=== PATIENT | female | born 1985 ===

== ENCOUNTER 2018-05-26 11:23 | Day surgery (SDC) | payer MEDICAID ==
--- NOTE | 2018-05-26 12:08 | CP.PCM.PN ---
Subjective - Date & Time of Evaluation Date of Evaluation: 05/26/18 Time of Evaluation: 12:03 - Subjective Subjective: Podiatry progress note for Dr. Traylor 32F with pmhx of arthritis seen and evaluated in [facility] for preoperative evaluation of left ankle arthroscopy. Resting comfortably. States that she has had fusions in her left foot in the past. States that the pain in her ankle is always there and hurts most when she is actively moving it. States that she has tried antiinflammatories and bracing and has had only mild success with alleviating the pain and instability. States that she is looking for a hyperion analyst because her father was diabetic and she has swollen joints and arthritis. NPO status confirmed. States she has not had any reactions to anesthesia in the past. Denies N/V/F/C/SOB/CP today and has no other pedal complaints PMHx - arthritis PSHx - hysterectomy, left ankle/foot surgery All - NKDA Objective - Constitutional Appears: Well, Non-toxic, No Acute Distress - Head Exam Head Exam: ATRAUMATIC, NORMOCEPHALIC - Extremities Exam Additional comments: LLE focused Vasc: DP and PT pulses 2/4; temp gradient warm to cool from proximal to distal; edema noted at the ankle joint; cap refill <3 seconds to all digits Derm: skin temp and turgor wnl; scars from previous foot/ankle surgery appreciated; no open lesions or wounds present Ortho: pain on palpation at the ankle joint; pain on active and passive ROM; MMT 5/5 despite minimal guarding Neuro: gross and protective sensation intact - Neurological Exam Neurological Exam: Alert, Awake, Oriented x3 - Psychiatric Exam Psychiatric exam: Normal Affect, Normal Mood Assessment and Plan - Assessment and Plan (Free Text) Assessment: 32F with pmhx of arthritis evaluated preoperatively for left ankle arthroscopy Plan: Pt was seen and examined in [facility] Pt NPO status was confirmed All pre-op testing and clearance in chart Pt has exhausted all conservative treatment at this time and is opting for surgical intervention Pt was explained procedure and post-operative course All pt's questions were answered to satisfaction No guarantees were made Pt understands all risks, benefits and complications of procedure Pt will follow-up with Dr. Traylor within 1 week of surgery
--- NOTE | 2018-05-26 12:09 | CP.SDSHP ---
Same Day Surgery H & P - History Proposed Procedure: Left ankle arthroscopy Pre-Op Diagnosis: Left ankle osteoarthritis - Allergies Allergies: Allergies No Known Allergies Allergy (Verified 05/26/18 11:48) - Physical Exam Neuro: WNL Heart: WNL Lungs: WNL GI: WNL - Impression Pt. Evaluated Today:Candidate for Anesthesia & Procedure: Yes - Date & Time Date: 05/26/18 Time: 12:09 Short Stay Discharge - Short Stay Discharge Admitting Diagnosis/Reason for Visit: ARTHROSCOPY LEFT ANKLE JOINT Disposition: HOME/ ROUTINE Additional Instructions (Diet, Activity): -Patient in good/stable condition for discharge home -Pt to resume medications per medical reconciliation -Resume regular diet -Please keep dressing clean, dry, & intact to surgical site -Use plastic bag over bandage for showering -Wear post op shoe at all times when ambulating -Call clinic if you see signs of infection (redness, swelling, malodor) -Please make an appointment to see Dr. Traylor in office/clinic within 1 week for post-op check Progress Note/Discharge Note with Instructions: - Patient evaluated bedside in recovery s/p left ankle arthroscopy - After surgical procedure patient in NAD - (+) Void, (+) Appetite - Capillary refill time <3s and NVS intact. - Patient denies complaints at this time. - Post operative instructions and plan of care explained to patient at length. - Patient. acknowledges verbal understanding. - Patient stable for DC per podiatric surgery
[2018-05-26 12:21] VITALS: RESP 18
[2018-05-26 12:33] VITALS: BMI 30.7
[2018-05-26] MEDS ORDERED: Lidocaine 1% Inj (20ml) ONE (12:35)
[2018-05-26] MEDS ORDERED: EPINEPHrine 1 mg/ml (1:1000) Inj ONE (12:35)
[2018-05-26] MEDS ORDERED: Bupivacaine 0.5% Inj(30mL) ONE (12:36)
[2018-05-26] MEDS ORDERED: Lidocaine 1% w Epi 1:100,000 Inj ONE (12:36)
[2018-05-26] MEDS ORDERED: ceFAZolin IV 1 gm in Dextrose 2 GM/100 ML BAG IVPB ONE (12:36)
[2018-05-26] MEDS ORDERED: Bupivacaine 0.25%-Epinephrine 1:200,000 (30 ml) Inj ONE (12:36)
[2018-05-26] MEDS ORDERED: Midazolam 2 MG/2 ML VIAL ONE (12:54)
[2018-05-26] MEDS ORDERED: Propofol 10 mg/ml Inj (20 ML) ONE (12:54)
[2018-05-26] MEDS ORDERED: Lidocaine 1% 5ml Abboject ONE (12:55)
[2018-05-26] MEDS ORDERED: Lidocaine 2% Jelly (5 ml) TOP ONE (12:55)
[2018-05-26] MEDS ORDERED: ceFAZolin IV 2 gm in Dextrose 2 GM/50 ML BAG IVPB ONE (12:58)
[2018-05-26] MEDS ORDERED: Bupivacaine 0.5% Inj(30mL) IJ ONE (12:58)
[2018-05-26] MEDS ORDERED: Lidocaine 1% Inj (20ml) IJ ONE (12:58)
[2018-05-26] MEDS ORDERED: Sodium Chloride 0.9% 1,000 ML IV SCH (13:00)
[2018-05-26] MEDS ORDERED: Lactated Ringer's 1,000 ML IV ONE ×2 (13:27→15:40)
[2018-05-26] MEDS ORDERED: Ropivacaine 0.5% 30ML IV ONE (13:27)
[2018-05-26] MEDS ORDERED: Dexamethasone 4 mg/1 ml ONE (14:06)
[2018-05-26] MEDS ORDERED: Oxycodone/Acetaminophen 5/325 mg Tab PO PRN ×2 (14:42)
--- NOTE | 2018-05-26 14:46 | PCM.SURG1 ---
Surgeon's Initial Post Op Note - Surgeon's Notes Surgeon: Dr. Traylor DPM Payment Processor: Dr. Guthrie PGY3 Type of Anesthesia: General IV Anesthesia Administered By: Dr. Deras Pre-Operative Diagnosis: Left ankle impingement, arthritis Operative Findings: see dictation. I: pop block. M: 4-0 nylon Post-Operative Diagnosis: same Operation Performed: left ankle arthroscopy Specimen/Specimens Removed: none Estimated Blood Loss: EBL {In ML}: 1 Blood Products Given: N/A Drains Used: No Drains Post-Op Condition: Good Date of Surgery/Procedure: 05/26/18 Time of Surgery/Procedure: 14:45
--- NOTE | 2018-05-26 14:53 | PCM.ANESB2 ---
Popliteal Nerve Block - Popliteal Nerve Block Date of Procedure: 05/26/18 Anesthesiologist: Braeden Pre-Procedure Diagnosis: Left ankle impingement Post-Procedure Diagnosis: Same Procedure Performed: Popliteal Nerve Block Left - Procedure Popliteal Nerve Block: This procedure was explained to the patient that it is for post-operative pain management. Consent was obtained after a thorough discussion with the patient regarding the benefits and possible complications of local anesthetic block of the sciatic nerve at the popliteal level. The patient was brought to the operati ng room and standard monitors are applied. Time-out was held with the circulating nurse to confirm the correct surgery and the appropriate block. Under general anesthesia, patient's operative leg was gently raised and supported and the groove in between the biceps femoris and vastus lateralis muscles was carefully palpated. The skin approximately 8cm above the popliteal crease was then marked. The ultrasound transducer was then applied to the posterior thigh approximately 8cm above the popliteal crease in the transverse plane and the sciatic nerve before its division was visualized lateral to the popliteal artery and in between the bicep femoris and semimembranosus/semitendinosus muscles. After identification, the lateral portion of the thigh was prepped with Chloraprep. At this point, a # 21 gauge Stimuplex insulated 4 inch needle was inserted into pre-marked area and advanced in a perpendicular direction. The needle was inserted above the ultrasound transducer in-plane towards the sciatic nerve in a [id number] direction. Needle advancement was performed carefully under direct ultrasound visualization. Nerve stimulator was used and dorsiflexion of the __left___ foot was elicited at a current of __0.5___ MA. After repeated negative aspiration, __2___cc of __0.5___ % __ropivacaine was injected and this was flowed with ___18___ cc of _0.5 % __ropivacaine . Under ultrasound guidance the local anesthetics were observed surrounding sciatic nerve . The needle was removed intact and sterile dressing was applied. The patient tolerated the popliteal nerve block well with stable vital signs and was subsequently prepared for emergence.
[2018-05-26] MEDS ORDERED: Lactated Ringer's 1,000 ML IV SCH (15:00)
[2018-05-26 15:58] VITALS: O2SAT 99
[2018-05-26 16:36] VITALS: BP 123/76; PULSE 68; TEMP 98.2
--- NOTE | 2018-05-28 08:26 | OP ---
PROCEDURE DATE: 05/26/2018 PREOPERATIVE DIAGNOSIS: Derangement, left ankle joint. POSTOPERATIVE DIAGNOSIS: Derangement, left ankle joint. PROCEDURE: Arthroscopic exploration and debridement of left ankle joint. SURGEON: Rafa Traylor DPM FARM IMPLEMENT ENGINE MECHANIC: Dr. Koehler. ANESTHESIA: General. HEMOSTASIS: Thigh tourniquet at 300 mmHg x38 minutes. DESCRIPTION OF PROCEDURE: The patient was brought to the operating room and positioned supine on the operating room table. A bump was placed underneath the left hip. The patient was then prepped and draped in the usual sterile manner. An Esmarch bandage was used to exsanguinate the foot and the ankle and the tourniquet was inflated. Attention was directed to the ankle. The ankle joint was manually distracted. An #18 gauge needle was inserted through the medial portal, medial to the tibialis anterior tendon. A 20 mL of saline solution were injected into the joint. A second #18 gauge needle was inserted through the lateral portal, lateral to the peroneus brevis tendon. It was noted that the saline extruded from this area confirming proper placement in the ankle joint. An additional 20 mL of saline was then injected. The needles were . A #11 blade was used to make a small stab incision at the medial portal as well as at the lateral portal. Blunt dissection was utilized to deepen the incisions. A trocar and cannula were then placed through the medial portal. The trocar was removed and the scope was placed. A trocar and cannula were then placed through the lateral portal, and the trocar was then removed and the shaver was placed. The joint was explored, and there was noted to be extensive synovitis with derangement of the ankle joint. Debridement was performed utilizing a full radius shaver. The joint was explored medially, laterally, anteriorly, and posteriorly; and there was noted to be extensive derangement of the ankle joint with no defects noted in the articular cartilage of the tibial plafond or the talar dome. Debridement of the synovitis was performed. The shaver and the scope were then removed and then switched into the opposite portals. Exploration was continued and the remainder of the synovitis was debrided. The scope was removed. The shaver was left in place to allow for suction and the saline within the joint was suctioned. The shaver was then removed. The portals were then closed and repaired with 4-0 nylon suture. A dry sterile compressive dressing was applied, and the tourniquet was deflated. There was not be instant hyperemic response to all five digits. The patient was stable throughout the entire procedure and tolerated the procedure well. The patient was returned to the recovery room in stable condition. Verbal and written instructions were provided for the patient as were prescriptions for pain and management and antibiotics with instructions on partial weightbearing as tolerated with a CAM walker boot and crutches. Rafa Traylor DPM
== END 2018-05-26 17:00 | disposition home or self-care (01) ==
LOC: H.OPSURG 11:23
PROVIDERS: ATTEND Podiatrist Foot & Ankle Surgery
DX: M19.072 Primary osteoarthritis, left ankle and foot (principal); Z90.710 Acquired absence of both cervix and uterus; E66.01 Morbid (severe) obesity due to excess calories; M25.862 Other specified joint disorders, left knee
CPT/HCPCS: 29897; 97161; G8978; G8979; G8980; J0690; J1100; J1885; J2250; J2405; J2704; J2765; J3010; J7030; J7120